=== PATIENT | male | born 1950 | race Caucasian/White ===

== ENCOUNTER 2018-04-02 11:53 | Emergency (ER) | payer OTHER ==
--- NOTE | 2018-04-02 12:15 | EDPHY ---
General <Maulik Marmolejo - Last Filed: 04/02/18 12:19> - History Smoking Status: Former smoker <Jack Miles - Last Filed: 04/02/18 13:39> Time Seen by Provider: 04/02/18 12:07 Narrative: CHIEF COMPLAINT: Fall from move, head injury HISTORY OF PRESENT ILLNESS: Patient presents by private vehicle with complaints of fall. He was working on [employer] while on the roof when he slipped on the metal roof. He states that he fell 10-20 feet, landing on a concrete retaining wall. He struck the back of his head. Did not lose consciousness. He sustained a laceration that was bleeding heavily at home. He has headache isolated to the area of laceration. He has no neck pain. No numbness, tingling. No lower back pain. No chest, abdominal or extremity pain. He 1st went to urgent care, and they sent him to our facility for higher level of care. Has no other associated complaints or modifying factors. Tetanus up-to-date less than 2 years ago. REVIEW OF SYSTEMS: 10 systems were reviewed and negative with the exception of the elements mentioned in the history of present illness. PCP: Dr. Richards SPECIALISTS: None PAST MEDICAL HISTORY: Reflux, seasonal allergies PAST SURGICAL HISTORY: No recent surgical history SOCIAL HISTORY: Never smoker. Very active individual. Lives independently [place] FAMILY HISTORY: Noncontributory EXAMINATION General Appearance: Alert, no distress Head: Normocephalic. There is a left occipital hematoma laceration. I cannot appreciate injury to the galea given the presence of dried blood. There is no obvious foreign body. No Mackey sign. No raccoon eyes. Eyes: Pupils equal and round, no conjunctival pallor or injection ENT, Mouth: Mucous membranes moist. Ears are clear without drainage or bleeding. Neck: Normal inspection, supple, non-tender. No crepitus, step-off or deformity. Painless range of motion all planes. Respiratory: Lungs are clear to auscultation Cardiovascular: Regular rate and rhythm Gastrointestinal: Abdomen is soft and nontender Back: non-tender, no bony abnormalities Neurological: GCS 15 for A&O, nonfocal. Strength is symmetric in the upper lower extremities. Light sensation is symmetric in the upper lower extremities. Normal steady gait. Skin: Warm and dry, no rash. There is a 2.5 cm, curvilinear laceration on the posterior scalp over the occiput. Extremities: Nontender, no pedal edema. Symmetric range of motion all 4 extremities. Psychiatric: Mood and affect normal DIFFERENTIAL DIAGNOSES: Including but not limited to intracranial hemorrhage, closed head injury, skull fracture, hematoma, laceration MDM: 12:20 p.m. Mechanical fall from 10-20 ft with blunt head trauma, occipital laceration. He has minimal headache at the location. No neck pain. His neuro exam is completely within normal limits. He drove himself here after going to urgent care. He is awake alert no acute distress. There is no complaint of pain anywhere else on his person. Tetanus of the day. He has been examined by Dr. Marmolejo at the same time as I have. Dr. Marmolejo has downgraded his trauma status. He does have a laceration that requires repair. Difficult to tell if there is compromise the galea. We will re-evaluate after irrigation. CT of the head has been ordered by Dr. Marmolejo. No CT of the cervical spine ordered. 1:[address] scan of the head reveals only a subgaleal hematoma without other acute findings. Chronic changes as noted. Proceed with closure of the wound. 1:35 p.m. Wound has been explored with sterile glove after irrigation. The galea is well visualized and there is no compromise of the galea. Wound was closed with chepe without difficulty. We discussed head injury precautions, ice, elevation. We discussed Tylenol [id number] given his aspirin allergy. We discussed follow up with primary care physician and ED precautions. He is ambulatory, has no complaints of pain and is comfortable with discharge home. Discharged stable condition. PROCEDURE: Laceration repair Consent: Verbal Location: Occipital scalp Length of repair: 3cm Complexity: Simple Layer involvement: Single Anesthesia: Local. 1% lidocaine with epinephrine, 7 mL Irrigation: Extensive Debridement: None Procedure description: Following good anesthesia, the wound was copiously irrigated. Wound bed was explored with a sterile glove, and there is no foreign body noted. The galea is well visualized and there is no compromise. Wound borders were approximated well with good hemostasis. Tolerated well without complication. Suture/Staple material: Chepe, #6 Wound care: Routine as discussed Suture/Staple removal: 10 Days SUPERVISION: Patient was evaluated and examined in conjunction with my secondary supervising physician as documented. We have both examined the patient. (Jack Miles) Medical Decision Makin: The patient is a healthy 67 y/o male arriving POV for evaluation of a head injury from a ~20ft fall this morning. He says he was on the roof patching the fireplace when he slid off and fell approximately 20ft sustaining a laceration to the back of his head. He says he hit the ground flat and denies loss of consciousness, weakness, paresthesias, or any other injuries. He drove himself to the ED from [place] without issue. No anticoagulants. On exam, he has a 2.5cm occipital laceration. Nonfocal neuro exam. No other trauma noted. Plan for head CT and wound care. 1214: Limited Trauma+ Activation downgraded. (Maulik Marmolejo) - Diagnostics Imaging Results: Imaging Impressions Head CT 04/02/18 12:18 Impression: Subgaleal hematoma overlying the left occipital bone. Otherwise, no acute intracranial process. Findings discussed with Jack Miles at 1245 hour, 04/02/2018. - Objective Vital Signs: Initial Vital Signs Temperature (C) 97.9 F 04/02/18 11:58 Heart Rate 93 04/02/18 11:58 Respiratory Rate 18 04/02/18 11:58 Blood Pressure 156/94 H 04/02/18 11:58 O2 Sat (%) 94 04/02/18 11:58 O2 Delivery Mode Room Air Allergies/Adverse Reactions: aspirin Allergy (Severe, Verified 04/02/18 12:03) airway problem peach Allergy (Verified 04/02/18 12:03) Home Medications: Medication Instructions Recorded ESOMEPRAZOLE MAG TRIHYDRATE 20 mg PO DAILY 10/26/11 [NEXIUM] Flexeril 10 MG (*) 04/02/18 Departure <Maulik Marmolejo - Last Filed: 04/02/18 12:19> <Jack Miles - Last Filed: 04/02/18 13:39> - Departure Disposition: Home, Routine, Self-Care Clinical Impression: Closed head injury without concussion Qualifiers: Encounter type: initial encounter Qualified Code(s): S09.90XA - Unspecified injury of head, initial encounter Occipital scalp laceration Qualifiers: Encounter type: initial encounter Qualified Code(s): S01.01XA - Laceration without foreign body of scalp, initial encounter Condition: Good Instructions: Laceration (ED), Staple Care (ED) Additional Instructions: 1. Ice to the affected area as needed 2. Follow up with primary care physician for evaluation early next week 3. Return here for staple removal in 10 days 4. ED precautions as discussed Referrals: STARLA STOVALL [Primary Care Provider] - As per Instructions Report Scribed for: Maulik Marmolejo Report Scribed by: Mary Arzate Date of Report: 04/02/18 Time of Report: 12:16 <Maulik Marmolejo - Last Filed: 04/02/18 12:19>
--- NOTE | 2018-04-02 12:16 | EDPHY ---
H & P Stated Complaint: fell from roof approx 25ft - lac to back of head, no loc, no other complain Time Seen by Provider: 04/02/18 12:13 - Personal History Current Tetanus Diphtheria and Acellular Pertussis (TDAP): Unsure - Medical/Surgical History Hx Asthma: No Hx Chronic Respiratory Disease: No Hx Diabetes: No Hx Cardiac Disease: No Hx Renal Disease: No Hx Cirrhosis: No Hx Alcoholism: No Hx HIV/AIDS: No Hx Splenectomy or Spleen Trauma: No Other PMH: gerd, hernia repair, R sided neck lymph node repair, reattachment 3rd finger L hand - Social History Smoking Status: Former smoker Constitutional: Initial Vital Signs Temperature (C) 36.6 C 04/02/18 11:58 Heart Rate 93 04/02/18 11:58 Respiratory Rate 18 04/02/18 11:58 Blood Pressure 156/94 H 04/02/18 11:58 O2 Sat (%) 94 04/02/18 11:58 O2 Delivery Mode Room Air Allergies/Adverse Reactions: aspirin Allergy (Severe, Verified 04/02/18 12:03) airway problem peach Allergy (Verified 04/02/18 12:03) Home Medications: Medication Instructions Recorded ESOMEPRAZOLE MAG TRIHYDRATE 20 mg PO DAILY 10/26/11 [NEXIUM] Flexeril 10 MG (*) 04/02/18 Departure - Departure Referrals: STARLA STOVALL [Primary Care Provider] - As per Instructions
[2018-04-02 13:34] VITALS: BP 157/93
== END 2018-04-12 09:05 | disposition home or self-care (01) ==
PROC: 0HQ0XZZ Repair Scalp Skin, External Approach (ICD-10-PCS; principal; 2018-04-02)
DX: S01.01XA Laceration without foreign body of scalp, initial encounter (principal); W13.2XXA Fall from, out of or through roof, initial encounter; Z87.891 Personal history of nicotine dependence